=== PATIENT | male | born 1980 | race Caucasian/White ===

== ENCOUNTER 2020-12-27 10:08 | Emergency (ER) | payer SELFPAY | END 2020-12-27 10:20 | disposition left against medical advice (07) | DRG 951 | LOC: ED 10:08 → LWOBS 10:19 | DX: Z53.21 Procedure and treatment not carried out due to patient leaving prior to being seen by health care provider (principal) ==

== ENCOUNTER 2022-08-09 10:14 | Emergency (ER) | payer OTHER ==
[2022-08-09] VITALS (9 sets, daily range): BP systolic 113–139; BP diastolic 76–91
[~2022-08-09] VITALS: Ht 170.2 cm; Wt 96.3 kg
[2022-08-09] MEDS ORDERED: DECADRON4 MG PO (12:55)
[2022-08-09] MEDS ORDERED: IBUPROFEN600 MG PO (12:55)
== END 2022-08-09 13:23 | disposition home or self-care (01) | DRG 556 ==
LOC: ED 10:14
DX: M25.551 Pain in right hip (principal)